=== PATIENT | male | born 2000 | race Caucasian/White ===

== ENCOUNTER 2024-01-29 23:40 | Inpatient (IN) | payer MEDICARE, OTHER ==
[~2024-01-29] VITALS: Ht 162.6 cm; Wt 44.6 kg
[2024-01-30] MEDS ORDERED: CEFTRIAXONE /D5W 50ML IVPB **ER PYXIS IV ONE (00:08)
[2024-01-30] MEDS ORDERED: VANCOMYCIN IV 200 ML ONE (00:08)
[2024-01-30] MEDS ORDERED: KETOROLAC TROMETHAMINE 15 MG INJ ONE (00:08)
[2024-01-30] MEDS ORDERED: ACETAMINOPHEN 650 MG SUPP.RECT RC ONE (00:08)
[2024-01-30] MEDS: IV NORMAL SALINE 1000 ML BAG IV ONE ×2 (00:17→02:33)
[2024-01-30] MEDS: CEFTRIAXONE 1 G in IV DEXTROSE 5% 50 ML IV ONE (00:17)
[2024-01-30] MEDS: KETOROLAC TROMETHAMINE 15 MG INJ IVP ONE (00:18)
[2024-01-30] MEDS: ACETAMINOPHEN 650 MG SUPP.RECT RC ONE (00:23)
[2024-01-30 00:32] LABS: BASOPHILS % (AUTO) 0.1 % (0.0-2.0); HEMOGLOBIN 10.2 g/dL (12.5-16.3)
[2024-01-30 00:33] LABS: BASOPHILS # (AUTO) 0.1 K/UL (0.0-0.2); LYMPHOCYTES # (AUTO) 0.8 K/uL (0.8-4.8); LYMPHOCYTES % (AUTO) 2.1 % (20.5-51.5); MEAN CORPUSCULAR HEMOGLOBIN 25.3 uug (23.8-33.4); MEAN CORPUSCULAR HGB CONC 31 g/dL (32.5-36.3); NEUTROPHILS # (AUTO) 34.2 K/uL (1.8-8.9); NEUTROPHILS % (AUTO) 89.8 % (38.5-71.5); PLATELET COUNT (AUTO) 384 K/uL (152-348); RED BLOOD CELL COUNT(AUTO) 4.03 MIL/uL (4.06-5.63); RED CELL DISTRIBUTION WIDTH 15.6 % (12.1-16.2)
[2024-01-30] MEDS: VANCOMYCIN IV 1,000 MG in IV DEXTROSE 5% 250 ML IV ONE (00:45)
[2024-01-30 00:53] LABS: *BLOOD, URINE 2+ (NEGATIVE); *CLARITY,URINE CLOUDY (CLEAR); *COLOR,URINE DARK YELLOW (YELLOW); *KETONES,URINE TRACE (NEGATIVE); *PROTEIN,URINE 2+ (NEGATIVE); *UROBILINOGEN,URINE 0.2 E.U./dl (NORMAL); LEUKOCYTE ESTERASE ,URINE 1+ (NEGATIVE); NITRITE, URINE POSITIVE (NEGATIVE); PH,URINE 5.5 (5.0-8.0); UGLUCOSE NEGATIVE (NEGATIVE)
[2024-01-30 01:16] LABS: DIFFERENTIAL COMMENT 1; WHITE BLOOD COUNT (AUTO) 38.1 K/uL (3.6-10.2)
[2024-01-30 01:20] LABS: ALANINE AMINOTRANSFERASE 94 U/L (16-63); ALBUMIN 2.4 g/dL (3.4-5.0); ALKALINE PHOSPHATASE 120 U/L (50-136); ASPARTATE AMINOTRANSFERASE 34 U/L (15-37); BILIRUBIN,DIRECT 0.3 mg/dL (0.0-0.2); BILIRUBIN,TOTAL 1.7 mg/dL (0.2-1.0); CALCIUM 8.7 mg/dL (8.5-10.1); CARBON DIOXIDE 27 mmol/L (21-32); CHLORIDE 103 mmol/L (98-107); CREATININE 0.7 mg/dL (0.6-1.3); GLUCOSE 138 mg/dL (74-106); NT-PRO BNP 369 pg/mL (0-125); SODIUM SERUM 142 mmol/L (136-145); TOTAL PROTEIN, SERUM 6.9 g/dL (6.4-8.2); UREA NITROGEN, BLOOD 18 mg/dL (7-18)
[2024-01-30 01:25] LABS: *BILIRUBIN,URIN 1+ (NEGATIVE)
[2024-01-30] MEDS ORDERED: LACT10SO58 GT (01:31)
[2024-01-30] MEDS ORDERED: ONDA-104 GT (01:31)
[2024-01-30] MEDS ORDERED: SENN1TAB59 GT (01:31)
[2024-01-30] MEDS ORDERED: METO-295 GT (01:31)
[2024-01-30] MEDS ORDERED: ACET-3117 GT (01:31)
[2024-01-30] MEDS ORDERED: LANS15CA18 GT (01:31)
[2024-01-30] MEDS ORDERED: NA P133E RC (01:31)
[2024-01-30] MEDS ORDERED: HYDR-894 GT (01:31)
[2024-01-30] MEDS ORDERED: METO25TA6 GT (01:31)
[2024-01-30] MEDS ORDERED: ERYT400T83 GT (01:31)
[2024-01-30] MEDS ORDERED: LORA10TA61 GT (01:31)
[2024-01-30] MEDS ORDERED: vancomycin IV (01:31)
[2024-01-30] MEDS ORDERED: BISA10SU11 RC (01:31)
[2024-01-30] MEDS ORDERED: FERR220S6 GT (01:31)
[2024-01-30] MEDS ORDERED: TIZA-180 GT (01:31)
[2024-01-30] MEDS ORDERED: MAGN400O6 GT (01:31)
[2024-01-30] MEDS ORDERED: ASCO500C18 GT (01:31)
[2024-01-30 01:42] LABS: BACTERIA,URINE MANY /HPF (NONE SEEN); YEAST,URINE MODERATE /HPF (NONE SEEN)
[2024-01-30 01:43] LABS: URIC ACID CRYSTALS,URINE FEW /HPF (NONE SEEN)
[2024-01-30 01:53] LABS: BAND % (MANUAL) 4 % (0-10); LYMPHOCYTES % (MANUAL) 5 % (20-40); MONOCYTES % (MANUAL) 12 % (2-10); NEUTROPHILS % (MANUAL) 79 % (42-75)
[2024-01-30] MEDS ORDERED: MAGNESIUM HYDROXIDE 30 ML LIQUID UDC PO PRN (02:00)
[2024-01-30] MEDS ORDERED: REMEDY ESSENTIAL ZINC PASTE 113 GM TP PRN (02:00)
[2024-01-30] MEDS ORDERED: IV NS 1000 ML 1,000 ML IV PRN (02:00)
[2024-01-30] MEDS ORDERED: ONDANSETRON 4 MG/2 ML VIAL IV PRN (02:00)
[2024-01-30] MEDS ORDERED: ACETAMINOPHEN 325 MG TABLET PO PRN (02:00)
[2024-01-30 06:24] VITALS: BP 105/53; TEMP 99.9; O2SAT 100
[2024-01-30 08:06] VITALS: BP 102/58; TEMP 97.7; O2SAT 95
[2024-01-30] MEDS: PANTOPRAZOLE SODIUM 40 MG TABLET.DR PO SCH (08:18)
[2024-01-30] MEDS ORDERED: POLY17PO4 GT (12:40)
[2024-01-30] MEDS ORDERED: ERYT200S16 PO (12:40)
[2024-01-30] MEDS ORDERED: BISACODYL 10 MG SUPP.RECT RC PRN (14:00)
[2024-01-30] MEDS ORDERED: FLEET ENEMA 133 ML BOTTLE RC PRN (14:00)
[2024-01-30 14:30] VITALS: BP 98/56; TEMP 100.3; O2SAT 99
[2024-01-30 14:42] LABS: BASOPHILS % (AUTO) 0.2 % (0.0-2.0); HEMATOCRIT 27.2 % (36.7-47.1); HEMOGLOBIN 8.5 g/dL (12.5-16.3); LYMPHOCYTES # (AUTO) 1.3 K/uL (0.8-4.8); LYMPHOCYTES % (AUTO) 4.7 % (20.5-51.5); MEAN CORPUSCULAR HEMOGLOBIN 25.4 uug (23.8-33.4); MEAN CORPUSCULAR HGB CONC 31 g/dL (32.5-36.3); MONOCYTES # (AUTO) 1.7 K/uL (0.1-1.30); MONOCYTES % (AUTO) 6.2 % (0.0-11.0); NEUTROPHILS % (AUTO) 88.9 % (38.5-71.5); PLATELET COUNT (AUTO) 248 K/uL (152-348); RED BLOOD CELL COUNT(AUTO) 3.36 MIL/uL (4.06-5.63); RED CELL DISTRIBUTION WIDTH 15.6 % (12.1-16.2); WHITE BLOOD COUNT (AUTO) 28.1 K/uL (3.6-10.2)
[2024-01-30] MEDS: IV D5/ 0.9% NACL 1,000 ML IV PRN (14:46)
[2024-01-30 14:47] LABS: DIFFERENTIAL COMMENT 1
[2024-01-30] MEDS: ACETAMINOPHEN 325 MG TABLET GT PRN (14:49)
[2024-01-30] MEDS: FLUCONAZOLE 200 MG/NS 100ML IV 100 MG in PREMIXED 1 EACH IV SCH (14:49)
[2024-01-30 14:50] LABS: CALCIUM 8.5 mg/dL (8.5-10.1); CARBON DIOXIDE 24 mmol/L (21-32); CHLORIDE 106 mmol/L (98-107); CREATININE 0.3 mg/dL (0.6-1.3); GLUCOSE 93 mg/dL (74-106); POTASSIUM 3.1 mmol/L (3.5-5.1); SODIUM SERUM 140 mmol/L (136-145); UREA NITROGEN, BLOOD 18 mg/dL (7-18)
[2024-01-30 14:56] LABS: ALANINE AMINOTRANSFERASE 73 U/L (16-63); ALBUMIN 2.4 g/dL (3.4-5.0); ALKALINE PHOSPHATASE 103 U/L (50-136); ASPARTATE AMINOTRANSFERASE 28 U/L (15-37); BILIRUBIN,TOTAL 0.7 mg/dL (0.2-1.0); LIPASE 15 U/L (16-77); MAGNESIUM 2.3 mg/dL (1.8-2.4); PHOSPHOROUS 2.5 mg/dL (2.5-4.9); TOTAL PROTEIN, SERUM 5.8 g/dL (6.4-8.2)
[2024-01-30 15:00] VITALS: TEMP 98
[2024-01-30 16:30] VITALS: O2SAT 99
[2024-01-30] MEDS: TIZANIDINE HCL 4 MG TABLET GT SCH (17:53)
[2024-01-30 19:00] VITALS: BP 82/51; TEMP 98.3; O2SAT 100
[2024-01-30] MEDS: VANCOMYCIN HCL 750 MG in IV DEXTROSE 5% 250 ML IV SCH (21:38)
[2024-01-31] VITALS: BP 119/65; TEMP 99.8; O2SAT 100
[2024-01-31] MEDS: CEFTRIAXONE 1 G in IV DEXTROSE 5% 50 ML IV SCH (00:41)
[2024-01-31] MEDS: METRONIDAZOLE 500 MG TABLET PO SCH (00:41)
[2024-01-31 04:00] VITALS: BP 108/71; TEMP 99; O2SAT 97
[2024-01-31 07:46] VITALS: BP 121/75; TEMP 98.9; O2SAT 98
[2024-01-31 07:53] LABS: BASOPHILS % (AUTO) 0.1 % (0.0-2.0); EOSINOPHILS % (AUTO) 0.1 % (0.0-7.0); HEMATOCRIT 28.3 % (36.7-47.1); HEMOGLOBIN 9.1 g/dL (12.5-16.3); LYMPHOCYTES % (AUTO) 5.3 % (20.5-51.5); MEAN CORPUSCULAR HEMOGLOBIN 25.9 uug (23.8-33.4); MEAN CORPUSCULAR HGB CONC 32 g/dL (32.5-36.3); MEAN CORPUSCULAR VOLUME 80.7 fL (73.0-96.2); MONOCYTES % (AUTO) 5.3 % (0.0-11.0); NEUTROPHILS # (AUTO) 17.4 K/uL (1.8-8.9); NEUTROPHILS % (AUTO) 89.2 % (38.5-71.5); PLATELET COUNT (AUTO) 296 K/uL (152-348); RED CELL DISTRIBUTION WIDTH 15.8 % (12.1-16.2); WHITE BLOOD COUNT (AUTO) 19.5 K/uL (3.6-10.2)
[2024-01-31 08:02] LABS: DIFFERENTIAL COMMENT 1
[2024-01-31 08:13] LABS: ALANINE AMINOTRANSFERASE 97 U/L (16-63); ALBUMIN 2.4 g/dL (3.4-5.0); ALKALINE PHOSPHATASE 103 U/L (50-136); ASPARTATE AMINOTRANSFERASE 36 U/L (15-37); BILIRUBIN,DIRECT 0.2 mg/dL (0.0-0.2); BILIRUBIN,TOTAL 0.5 mg/dL (0.2-1.0); CALCIUM 8.3 mg/dL (8.5-10.1); CARBON DIOXIDE 27 mmol/L (21-32); CHLORIDE 102 mmol/L (98-107); CREATININE 0.4 mg/dL (0.6-1.3); GLUCOSE 128 mg/dL (74-106); MAGNESIUM 1.7 mg/dL (1.8-2.4); PHOSPHOROUS 2.4 mg/dL (2.5-4.9); POTASSIUM 2.9 mmol/L (3.5-5.1); SODIUM SERUM 138 mmol/L (136-145); UREA NITROGEN, BLOOD 7 mg/dL (7-18)
[2024-01-31 08:49] LABS: THYROID STIMULATING HORMONE 0.965 mIU/mL (0.358-3.740)
[2024-01-31] MEDS: FERROUS SULFATE 300 MG/5 ML LIQUID UDC GT SCH (09:49)
[2024-01-31] MEDS: ASCORBIC ACID 500 MG TABLET GT SCH (09:49)
[2024-01-31] MEDS: PANTOPRAZOLE ORAL SUSPENSION 40 MG SUSPDR.PKT GT SCH (09:52)
[2024-01-31] MEDS: MAGNESIUM SULFATE/D5W 100 ML IV SCH (10:18)
[2024-01-31] MEDS: MEDIHONEY= THERAHONEY 1.5 OZ TUBE TOP SCH (11:15)
[2024-01-31 11:57] VITALS: BP 98/59; TEMP 98; O2SAT 97
[2024-01-31] MEDS: POTASSIUM CHLORIDE 50 ML IV SCH (12:46)
[2024-01-31 15:50] VITALS: BP 115/64; TEMP 97.6; O2SAT 97
[2024-01-31 19:00] VITALS: BP 104/66; TEMP 98.6; O2SAT 98
[2024-01-31] MEDS: SODIUM PHOSPHATE MM 15 MMOL in IV NORMAL SALINE 250 ML IV ONE (21:41)
[2024-02-01] VITALS: BP 112/67; TEMP 98.7; O2SAT 97
[2024-02-01 04:00] VITALS: BP 111/73; TEMP 98.6; O2SAT 95
[2024-02-01 07:20] LABS: CALCIUM 8.2 mg/dL (8.5-10.1); CARBON DIOXIDE 30 mmol/L (21-32); CHLORIDE 104 mmol/L (98-107); CREATININE 0.4 mg/dL (0.6-1.3); GLUCOSE 119 mg/dL (74-106); MAGNESIUM 1.9 mg/dL (1.8-2.4); SODIUM SERUM 141 mmol/L (136-145); UREA NITROGEN, BLOOD 2 mg/dL (7-18)
[2024-02-01 07:22] VITALS: BP 100/54; TEMP 98; O2SAT 94
[2024-02-01 07:56] LABS: POTASSIUM 2.6 mmol/L (3.5-5.1)
[2024-02-01] MEDS: PROTEIN SUPPLEMENT (PROSTAT) 30 ML LIQUID GT SCH (08:00)
[2024-02-01 11:22] VITALS: BP 101/62; TEMP 98.5; O2SAT 94
[2024-02-01] MEDS: POTASSIUM CHLORIDE 20 MEQ POWDER PACKET GT ONE (12:05)
[2024-02-01 15:48] VITALS: BP 99/48; TEMP 98.3; O2SAT 94
[2024-02-01] MEDS: FLUCONAZOLE 200 MG/NS 100ML IV 200 MG in PREMIXED 1 EACH IV SCH (16:32)
[2024-02-01 19:00] VITALS: BP 104/67; TEMP 98.5; O2SAT 96
[2024-02-02] VITALS: BP 105/73; TEMP 98.8; O2SAT 98
[2024-02-02 04:00] VITALS: BP 119/58; TEMP 98.2; O2SAT 97
[2024-02-02 08:00] VITALS: BP 99/75; TEMP 98.4; O2SAT 91
[2024-02-02 08:50] LABS: BASOPHILS % (AUTO) 0.2 % (0.0-2.0); EOSINOPHILS # (AUTO) 0.1 K/uL (0.0-0.7); EOSINOPHILS % (AUTO) 0.8 % (0.0-7.0); HEMATOCRIT 31.1 % (36.7-47.1); HEMOGLOBIN 10.1 g/dL (12.5-16.3); LYMPHOCYTES # (AUTO) 1.2 K/uL (0.8-4.8); LYMPHOCYTES % (AUTO) 19.9 % (20.5-51.5); MEAN CORPUSCULAR HEMOGLOBIN 25.9 uug (23.8-33.4); MEAN CORPUSCULAR HGB CONC 33 g/dL (32.5-36.3); MEAN CORPUSCULAR VOLUME 79.8 fL (73.0-96.2); MONOCYTES # (AUTO) 0.7 K/uL (0.1-1.30); MONOCYTES % (AUTO) 10.9 % (0.0-11.0); NEUTROPHILS # (AUTO) 4.1 K/uL (1.8-8.9); NEUTROPHILS % (AUTO) 68.2 % (38.5-71.5); PLATELET COUNT (AUTO) 349 K/uL (152-348); RED CELL DISTRIBUTION WIDTH 15.6 % (12.1-16.2)
[2024-02-02 09:11] LABS: DIFFERENTIAL COMMENT 1
[2024-02-02 10:53] VITALS: BP 98/62; TEMP 98.4; O2SAT 100
[2024-02-02 11:35] LABS: ALANINE AMINOTRANSFERASE 92 U/L (16-63); ALKALINE PHOSPHATASE 106 U/L (50-136); ASPARTATE AMINOTRANSFERASE 17 U/L (15-37); BILIRUBIN,TOTAL 0.5 mg/dL (0.2-1.0); CALCIUM 8.9 mg/dL (8.5-10.1); CARBON DIOXIDE 30 mmol/L (21-32); CHLORIDE 104 mmol/L (98-107); CREATININE 0.4 mg/dL (0.6-1.3); GLUCOSE 99 mg/dL (74-106); MAGNESIUM 1.8 mg/dL (1.8-2.4); PHOSPHOROUS 3.4 mg/dL (2.5-4.9); POTASSIUM 3.3 mmol/L (3.5-5.1); SODIUM SERUM 143 mmol/L (136-145); TOTAL PROTEIN, SERUM 6.8 g/dL (6.4-8.2); UREA NITROGEN, BLOOD 2 mg/dL (7-18)
[2024-02-02 15:48] VITALS: BP 107/59; TEMP 98.1; O2SAT 93
[2024-02-02 19:30] VITALS: BP 109/61; TEMP 97.1; O2SAT 94
[2024-02-02] MEDS: CEFEPIME HCL 1 G in IV DEXTROSE 5% 50 ML IV SCH (21:32)
[2024-02-02] MEDS: MIDODRINE HCL 5 MG TABLET GT SCH (21:33)
[2024-02-02] MEDS: METOPROLOL TARTRATE 25 MG TABLET GT SCH (21:37)
[2024-02-03] VITALS: BP 117/71; TEMP 98.6; O2SAT 96
[2024-02-03 04:00] VITALS: BP 111/85; TEMP 98.3; O2SAT 100
[2024-02-03 06:54] LABS: BASOPHILS % (AUTO) 0.4 % (0.0-2.0); EOSINOPHILS # (AUTO) 0.1 K/uL (0.0-0.7); EOSINOPHILS % (AUTO) 2.2 % (0.0-7.0); HEMATOCRIT 29.8 % (36.7-47.1); HEMOGLOBIN 9.7 g/dL (12.5-16.3); LYMPHOCYTES # (AUTO) 1.2 K/uL (0.8-4.8); LYMPHOCYTES % (AUTO) 20.9 % (20.5-51.5); MEAN CORPUSCULAR HEMOGLOBIN 25.7 uug (23.8-33.4); MEAN CORPUSCULAR HGB CONC 33 g/dL (32.5-36.3); MONOCYTES # (AUTO) 0.7 K/uL (0.1-1.30); MONOCYTES % (AUTO) 12.4 % (0.0-11.0); NEUTROPHILS # (AUTO) 3.6 K/uL (1.8-8.9); NEUTROPHILS % (AUTO) 64.1 % (38.5-71.5); PLATELET COUNT (AUTO) 395 K/uL (152-348); RED BLOOD CELL COUNT(AUTO) 3.78 MIL/uL (4.06-5.63); RED CELL DISTRIBUTION WIDTH 15.7 % (12.1-16.2); WHITE BLOOD COUNT (AUTO) 5.6 K/uL (3.6-10.2)
[2024-02-03 07:27] LABS: CALCIUM 8.6 mg/dL (8.5-10.1); CARBON DIOXIDE 29 mmol/L (21-32); CHLORIDE 101 mmol/L (98-107); CREATININE 0.4 mg/dL (0.6-1.3); GLUCOSE 102 mg/dL (74-106); MAGNESIUM 1.8 mg/dL (1.8-2.4); PHOSPHOROUS 3.1 mg/dL (2.5-4.9); SODIUM SERUM 140 mmol/L (136-145); UREA NITROGEN, BLOOD 3 mg/dL (7-18)
[2024-02-03 07:28] LABS: IRON, SERUM 14 ug/dL (50-175)
[2024-02-03 07:43] VITALS: BP 111/67; TEMP 98.1; O2SAT 96
[2024-02-03 07:49] LABS: DIFFERENTIAL COMMENT 1
[2024-02-03] MEDS: POTASSIUM CHLORIDE 20 MEQ in IV D5 1/2 NS 1000 ML 1,000 ML IV PRN (07:49)
[2024-02-03 07:56] LABS: POTASSIUM 2.5 mmol/L (3.5-5.1)
[2024-02-03] MEDS: POTASSIUM CHLORIDE 20 MEQ POWDER PACKET GT ONE (10:19)
[2024-02-03] MEDS: SOD FERRIC GLUC COMPLX/SUCROSE 125 MG in IV NORMAL SALINE 100 ML IV ONE (10:51)
[2024-02-03 11:27] VITALS: BP 100/66; TEMP 98.2; O2SAT 94
[2024-02-03 15:43] VITALS: BP 95/64; TEMP 98.6; O2SAT 99
[2024-02-03] MEDS ORDERED: PROT30LI GT (16:04)
[2024-02-03] MEDS ORDERED: CEFE1FRO IV (16:04)
[2024-02-03] MEDS ORDERED: MAGN400T30 GT (16:04)
[2024-02-03] MEDS ORDERED: POTA20PA34 GT (16:04)
[2024-02-03] MEDS ORDERED: METR500T GT (16:04)
[2024-02-03] MEDS ORDERED: MIDO5TAB4 GT (16:04)
[2024-02-03] MEDS ORDERED: MENT113O TP (16:04)
[2024-02-03] MEDS ORDERED: METO25TA6 GT (16:04)
[2024-02-03] MEDS ORDERED: JEVITY 1.2 1000 ML LIQUID GT PRN (17:00)
[2024-02-03] MEDS: JEVITY 1.2 1000 ML LIQUID GT PRN (18:18)
[2024-02-03 19:00] VITALS: BP 104/59; TEMP 97.9; O2SAT 97
[2024-02-03] MEDS: MAGNESIUM OXIDE 400 MG TABLET GT SCH (20:51)
[2024-02-04] VITALS: BP 114/62; TEMP 98.1; O2SAT 95
[2024-02-04 04:00] VITALS: BP 106/64; TEMP 98.3; O2SAT 99
[2024-02-04 07:14] LABS: BASOPHILS % (AUTO) 0.4 % (0.0-2.0); EOSINOPHILS # (AUTO) 0.3 K/uL (0.0-0.7); EOSINOPHILS % (AUTO) 3.5 % (0.0-7.0); HEMATOCRIT 29.3 % (36.7-47.1); HEMOGLOBIN 9.6 g/dL (12.5-16.3); LYMPHOCYTES % (AUTO) 27.7 % (20.5-51.5); MEAN CORPUSCULAR HGB CONC 33 g/dL (32.5-36.3); MEAN CORPUSCULAR VOLUME 79.4 fL (73.0-96.2); MONOCYTES % (AUTO) 13.2 % (0.0-11.0); NEUTROPHILS % (AUTO) 55.2 % (38.5-71.5); PLATELET COUNT (AUTO) 381 K/uL (152-348); RED BLOOD CELL COUNT(AUTO) 3.69 MIL/uL (4.06-5.63); RED CELL DISTRIBUTION WIDTH 15.8 % (12.1-16.2); WHITE BLOOD COUNT (AUTO) 7.2 K/uL (3.6-10.2)
[2024-02-04 07:40] LABS: DIFFERENTIAL COMMENT 1
[2024-02-04 07:41] VITALS: BP 104/64; TEMP 98.6; O2SAT 91
[2024-02-04 07:47] LABS: ALANINE AMINOTRANSFERASE 54 U/L (16-63); ALBUMIN 2.6 g/dL (3.4-5.0); ALKALINE PHOSPHATASE 87 U/L (50-136); ASPARTATE AMINOTRANSFERASE 10 U/L (15-37); BILIRUBIN,TOTAL 0.2 mg/dL (0.2-1.0); CALCIUM 8.5 mg/dL (8.5-10.1); CARBON DIOXIDE 28 mmol/L (21-32); CHLORIDE 105 mmol/L (98-107); CREATININE 0.4 mg/dL (0.6-1.3); GLUCOSE 110 mg/dL (74-106); MAGNESIUM 2.1 mg/dL (1.8-2.4); PHOSPHOROUS 2.8 mg/dL (2.5-4.9); POTASSIUM 3.3 mmol/L (3.5-5.1); SODIUM SERUM 139 mmol/L (136-145); TOTAL PROTEIN, SERUM 6.1 g/dL (6.4-8.2); UREA NITROGEN, BLOOD 8 mg/dL (7-18)
[2024-02-04] MEDS: POTASSIUM CHLORIDE 20 MEQ POWDER PACKET GT SCH (08:26)
[2024-02-04 11:14] VITALS: BP 104/52; TEMP 98.2; O2SAT 96
[2024-02-04] MEDS: POTASSIUM CHLORIDE 20 MEQ POWDER PACKET GT ONE (11:45)
[2024-02-04 13:49] VITALS: BP 104/52
== END 2024-02-04 15:38 | DRG 871 ==
LOC: ER 23:58 → TELE3 01-30 01:08
PROVIDERS: ADMIT Student in an Organized Health Care Education/Training Program; ATTEND Internal Medicine
DX: A41.1 Sepsis due to other specified staphylococcus (principal); E43 Unspecified severe protein-calorie malnutrition; J96.21 Acute and chronic respiratory failure with hypoxia; J69.0 Pneumonitis due to inhalation of food and vomit; L89.224 Pressure ulcer of left hip, stage 4; L89.623 Pressure ulcer of left heel, stage 3; B37.49 Other urogenital candidiasis; Z68.1 Body mass index [BMI] 19.9 or less, adult; E87.20 Acidosis, unspecified; R17 Unspecified jaundice; G37.89 Other specified demyelinating diseases of central nervous system; G80.9 Cerebral palsy, unspecified; B96.89 Other specified bacterial agents as the cause of diseases classified elsewhere; K56.41 Fecal impaction; F41.9 Anxiety disorder, unspecified; H54.7 Unspecified visual loss; K21.9 Gastro-esophageal reflux disease without esophagitis; E87.6 Hypokalemia; D64.9 Anemia, unspecified; K43.5 Parastomal hernia without obstruction or gangrene; R65.20 Severe sepsis without septic shock; Z88.2 Allergy status to sulfonamides; Z88.0 Allergy status to penicillin; R62.7 Adult failure to thrive; Z93.3 Colostomy status; R13.10 Dysphagia, unspecified; Z79.899 Other long term (current) drug therapy; L89.210 Pressure ulcer of right hip, unstageable; Z93.1 Gastrostomy status; R94.31 Abnormal electrocardiogram [ECG] [EKG]; M24.562 Contracture, left knee; M24.561 Contracture, right knee; M24.572 Contracture, left ankle; M24.571 Contracture, right ankle; E88.09 Other disorders of plasma-protein metabolism, not elsewhere classified; R16.1 Splenomegaly, not elsewhere classified
CPT/HCPCS: 36415; 70030-TC; 70450; 71045; 83550; 83605; 83690; 83735; 84100; 84443; 84484; 85025; 85730; 87040; A4663; A6209; A6213; G0378; J0692; J0696; J1450; J1885; J2916; J3370; J3475; J3480; J3490; J7040; J7042; J7050